=== PATIENT | male | born 1995 | race Caucasian/White ===

== ENCOUNTER 2020-11-25 16:12 | Outpatient (REF) | payer OTHER, SELFPAY ==
--- NOTE | ~2020-11-25 | XR_ITS ---
EXAMINATION: XR CHEST CLINICAL INFORMATION: Covid infection COMPARISON: None TECHNIQUE: 2 views of the chest were obtained. FINDINGS: No significant abnormality is noted involving the heart, lungs, mediastinum, bony thorax or soft tissues. XR/XR chest 2V IMPRESSION: Unremarkable examination.
== END 2020-11-25 16:13 | disposition home or self-care (01) ==
LOC: HO.HMGCX 16:12
PROVIDERS: PCP Physician Assistant; Visit Provider Physician Assistant
DX: U07.1 COVID-19 (principal)
CPT/HCPCS: 71046

== ENCOUNTER 2021-10-27 16:33 | Outpatient (REF) | payer OTHER, SELFPAY ==
[2021-10-27 17:55] LABS: Hemoglobin 15.6 g/dl (14.0-18.0); Mean Corpuscular HGB Conc 33.9 g/dl (31.0-36.0); Mean Corpuscular Hemoglobin 29.8 pg (27.0-33.0); Mean Corpuscular Volume 87.8 fL (80.0-98.0); Mean Platelet Volume 11.4 fL (9.4-12.4); Platelet Count 301 X10*3/uL (160-400); Red Blood Count 5.24 X10*6/uL (4.60-5.80); Red Cell Distribution Width 12.5 % (11.0-16.0); White Blood Count 10.6 X10*3/uL (4.8-10.8)
[2021-10-27 18:15] LABS: Alanine Aminotransferase 37 U/L (0-40); Albumin Level 4.6 g/dL (3.5-5.0); Alkaline Phosphatase 102 U/L (39-117); Anion Gap 12 (12-20); Aspartate Amino Transferase 23 U/L (5-37); Bilirubin Total 0.4 mg/dL (0.0-1.0); Blood Urea Nitrogen 13 mg/dL (9-16); Carbon Dioxide 28 mmol/L (22-29); Chloride 104 mmol/L (96-108); Cholesterol 278 mg/dL; Estimated Glomerular Filt Rate > 60; Glucose Fasting 84 mg/dL (60-99); HDL Cholesterol 39 mg/dL; LDL Cholesterol Calculated 202 mg/dl; Potassium 4.3 mmol/L (3.3-5.1); Sodium 140 mmol/L (135-145); Total Protein 7.9 g/dL (6.5-8.0); Triglycerides 189 mg/dL
[2021-10-27 18:38] LABS: TSH reflex Free T4 2.35 uIU/mL (0.32-4.0)
[2021-10-28 07:54] LABS: Estimated Average Glucose 100 mg/dL; Hemoglobin A1c % 5.1 %
== END 2021-10-27 16:34 | disposition home or self-care (01) ==
LOC: HO.LAB 16:33
PROVIDERS: Visit Provider Physician Assistant
DX: Z13.1 Encounter for screening for diabetes mellitus (principal); Z13.220 Encounter for screening for lipoid disorders; E66.09 Other obesity due to excess calories; Z68.35 Body mass index [BMI] 35.0-35.9, adult
CPT/HCPCS: 36415; 80053; 80061; 83036; 84443; 85027

== ENCOUNTER → 2021-11-18 09:00 | Outpatient (BNVA) | payer OTHER, SELFPAY | PROVIDERS: PCP Physician Assistant; Visit Provider Dietitian, Registered | DX: E66.9 Obesity, unspecified (principal); Z68.35 Body mass index [BMI] 35.0-35.9, adult; Z71.3 Dietary counseling and surveillance | CPT/HCPCS: 97802 ==

== ENCOUNTER → 2022-03-04 08:58 | Outpatient (BNVA) | payer OTHER, SELFPAY | PROVIDERS: PCP Physician Assistant; Visit Provider Dietitian, Registered | DX: E66.09 Other obesity due to excess calories (principal); Z68.33 Body mass index [BMI] 33.0-33.9, adult | CPT/HCPCS: 97803 ==

== ENCOUNTER 2023-06-17 08:39 | Outpatient (REF) | payer OTHER, SELFPAY ==
--- NOTE | ~2023-06-17 | FL_ITS ---
EXAMINATION: XR FLUOROSCOPY BARIUM SWALLOW WITH AIR CLINICAL INFORMATION: Episodic oropharyngeal phase dysphagia, chronic. COMPARISON: None TECHNIQUE: Fluoroscopic barium swallow was performed utilizing standard technique with thin and thick barium with effervescent granules. Numerous fluoroscopic spot images were obtained. FINDINGS: Imaging of the oral pharyngeal and hypopharyngeal phase of swallow demonstrates normal function, normal epiglottic movement and soft palate elevation. No nasopharyngeal reflux and no evidence of laryngeal penetration or aspiration. The hypopharyngeal structures have a normal appearance. No evidence of cricopharyngeal achalasia. The esophagus demonstrates normal caliber and contour. No strictures, masses, or mucosal abnormality. No evidence of esophageal web or congenital anomaly. Esophageal motility was normal with good primary peristalsis. No evidence of hiatus hernia was seen. There was episodic gastroesophageal reflux which was significant, to the level of the thoracic inlet and beyond. This was noted several times during the examination. The stomach has a normal contour and appearance. No masses or ulcerations identified. Normal gastric fold pattern. Contrast freely passed into the duodenal bulb and duodenal sweep without delay. Imaging of the bulb and sweep demonstrate normal mucosal patterns without focal abnormalities. The proximal small bowel has a normal fold pattern, and contrast has progressed into the proximal ileum by the end of the examination. FLUOROSCOPY TIME: 4.2 minutes 54 spot images obtained. DOSE AREA PRODUCT: 51.276 uGy-m2 (microgray-meter squared) FL/FL barium swallow with air IMPRESSION: 1. Episodic rather profound gastroesophageal reflux to the level of the thoracic inlet and beyond. No evidence of hiatus hernia. 2. Examination is otherwise normal.
== END 2023-06-17 08:40 | disposition home or self-care (01) ==
LOC: HO.XRAY 08:39
PROVIDERS: Visit Provider Physician Assistant
DX: R13.12 Dysphagia, oropharyngeal phase (principal)
CPT/HCPCS: 74221

== ENCOUNTER → 2023-06-17 08:40 | Outpatient (BNV) | payer OTHER, SELFPAY | PROVIDERS: Visit Provider Radiology Diagnostic Radiology | DX: R13.10 Dysphagia, unspecified (principal) | CPT/HCPCS: 74221 ==

== ENCOUNTER 2023-06-24 14:50 | Outpatient (AMB) | payer OTHER, SELFPAY ==
--- NOTE | 2023-06-24 15:02 | A.OFFPC_ITS ---
Vital Signs 06/24/23 15:04 Height 5 ft 9 in Weight 236 lb 2 oz BMI 34.9 BP 118/76 Blood Pressure Location Lt brachial Position Sitting Pulse 66 Pulse Source Pulse Oximeter Pulse Oximetry (%) 97 Oxygen Delivery Method Room Air Intake Visit Reasons: f/u weight and cholesterol Intake Note: Patient is here to follow up on weight and cholesterol. Management Accounts Manager Required: No Digital Traffic Coordinator: Not Required per policy Accompanied by: Self / Same As Patient Allergies oyster extract Allergy (Mild, Verified 06/24/23 15:20) Abdominal Pain Medication List - Last Reconciled 06/24/23 by Todd Leary PA-C No Known Home Meds Tobacco use date assessed: 06/24/23 Dental Screening Dental Screen Date: 06/24/23 Did you have a dental visit in the last 12 months?: Yes Did you have a dental problem in the last 6 months where you did not have access to dental care?: No Was dental information given to patient?: Patient has dentist HPI f/u weight and cholesterol HPI Details Patient is a 27 -year-old male here today for annual physical.? Concerns-->??recently underwent a barium swallow which did show profound gastroesophageal reflux. He is now following up with PCP about treatment and management. PLAN: Will start PPI therapy and we did discuss dietary modifications for GERD Obesity: We have noted a 10 lb weight loss since last office visit. Otherwise patient understands his BMI is 34 and needs to reduce his weight.? Has unfortunately gained weight since last annual physical. He reports he has a sedative lifestyle and will work on being more physically active. [facility] Surgical History No pertinent past surgical history Family History Father Hypertension Mother No problems noted. Maternal Uncle Lung cancer Maternal Grandfather Lung cancer Social History Housing: House Alcohol intake: current Alcohol intake frequency: a few times a month Alcohol type: beer Patient Tobacco Use Status: Never used Tobacco e-Cigarette/Vaping Use: Never Used Second Hand Smoke Exposure: No service: No Current occupational status: employed Current occupation: [employer] Cognitive needs: No Hearing needs: No Vision needs: Yes (glasses) Questionnaire Thrive Questionnaire Date Thrive assessed: 12/22/22 TAMIKA-7 AMB Questionnaire TAMIKA-7 Date TAMIKA - 7 assessed: 12/22/22 Source: Developed by Drs. Bruce Alfonso, Andria Michael, Krishna Rivera and colleagues, with an educational meño from [employer]. Review of Systems Const Denies headache(s) Eyes Denies loss of vision ENT Denies vertigo, Denies dizziness, Denies headache(s) and Denies sore throat Card Denies chest pain, Denies leg edema and Denies lightheadedness Resp Denies cough, Denies hemoptysis and Denies wheezing GI Denies abdominal pain, Denies melena, Denies constipation, Reports dyspepsia, Reports heartburn, Denies diarrhea and Denies vomiting Denies dysuria, Denies urinary frequency and Denies urinary urgency Musc Denies arthralgias, Denies joint swelling, Denies numbness and Denies tingling Neuro Denies Abnormal speech present, Denies behavioral changes, Denies vertigo, Denies dizziness, Denies headache(s), Denies loss of vision, Denies memory loss, Denies numbness and Denies tingling Psych Denies anxiety, Denies behavioral changes, Denies depression, Denies memory loss and Denies panic attacks Angelito/Lymph Denies easy bleeding and Denies easy bruising Aller/Immun Denies wheezing Physical exam (Primary Care) Vital Signs: Last Vital Signs Pulse 66 06/24/23 15:04 BP 118/76 06/24/23 15:04 Pulse Ox 97 06/24/23 15:04 Oxygen Delivery Method Room Air 06/24/23 15:04 BMI result Body Mass Index 34.9 Tobacco/Smoking Status: Tobacco use Status Tobacco use date assessed 06/24/23 06/24/23 15:11 Patient Tobacco Use Status Never used Tobacco 06/24/23 15:11 e-Cigarette/Vaping Use Never Used 06/24/23 15:11 Thrive Assessment: Date of Thrive Assessment Date Thrive assessed 12/22/22 06/24/23 15:11 Const General: healthy appearing, no acute distress, alert and awake Nutritional Appearance: well nourished Orientation/consciousness: oriented to person, oriented to place and oriented to time HENMT Ears: TM's normal bilaterally General nose exam: Normal nasal mucous membranes and turbinates present Eyes Conjunctivae: conjunctivae normal Sclerae: sclerae normal Pupils: Equal, round and reactive pupils present Neck Neck: Yes no lymphadenopathy and Yes no JVD Thyroid: Thyroid normal Carotids: no bruits Resp Effort & Inspection: normal respiratory effort and not tachypneic Auscultation: no crackles, no rales, no rhonchi and no wheezes Cardio Rate: regular rate Rhythm: regular rhythm Heart sounds: no murmurs and normal S1 and S2 GI Palpation (GI): Soft to palpation, nontender, no hepatomegaly and no splenomegaly Auscultation: normal bowel sounds Skin General skin exam: no rashes or lesions noted and dry skin Neuro General: oriented to person, oriented to place and oriented to time Cranial nerves: Yes Equal, round and reactive pupils present Speech: No Abnormal speech present Gait exam (Neuro): Normal gait present Motor exam (neuro): no tremor noted Extrem Right upper extremity: full ROM Left upper extremity: full ROM Right lower extremity: full ROM; no edema Left lower extremity: full ROM; no edema Psych Mental Status: mental status grossly normal Speech and movement: Normal speech and movement present Affect: normal affect Attitude: cooperative Thought process: Normal thought process present Assessment and Plan Assessment & Plan (1) GERD (gastroesophageal reflux disease): Comment: May 2023Episodic rather profound gastroesophageal reflux to the level of the thoracic inlet and beyond. No evidence of hiatus hernia. 2. Examination is otherwise normal. Code(s): K21.9 - Gastro-esophageal reflux disease without esophagitis Qualifiers: Esophagitis presence: without esophagitis Qualified Code(s): K21.9 - Gastro-esophageal reflux disease without esophagitis Plan: As per HPI patient is barium swallow did show profound gastro oesophageal reflux. Will start PPI therapy and implement and dietary changes to reduce GERD symptoms. If conservative treatment fails will consider GI evaluation for endoscopy. Coding Level of Care Code Est Pt Level 3 (93322) Diagnoses Gastroesophageal reflux disease without esophagitis K21.9 Esophagitis presence: without esophagitis
[2023-06-24 15:04] VITALS: BP 118/76; PULSE 66; O2SAT 97; BMI 34.9
== END 2023-06-24 15:33 | disposition home or self-care (01) ==
PROVIDERS: Visit Provider Physician Assistant
DX: K21.9 Gastro-esophageal reflux disease without esophagitis (principal)
CPT/HCPCS: 99213

== ENCOUNTER 2023-09-20 14:53 | Outpatient (REF) | payer OTHER, SELFPAY ==
[2023-09-22 15:30] LABS: H Pylori Breath Test Negative (Negative)
== END 2023-09-20 14:54 | disposition home or self-care (01) ==
LOC: CF 14:53
PROVIDERS: Visit Provider Nurse Practitioner Family
DX: K21.9 Gastro-esophageal reflux disease without esophagitis (principal); R13.12 Dysphagia, oropharyngeal phase; R10.13 Epigastric pain
CPT/HCPCS: 83013

== ENCOUNTER 2023-09-20 14:53 | Outpatient (AMB) | payer OTHER, SELFPAY ==
--- NOTE | 2023-09-20 15:00 | A.OFFVIS_ITS ---
Intake Vital Signs 09/20/23 15:01 Height 5 ft 9 in Weight 237 lb 10.533 oz BMI 35.1 BP 129/76 Blood Pressure Location Lt brachial Position Sitting Pulse 64 Intake Visit Reasons: gerd Intake Note: Geoff presents to in office visit today as a new patient for GERD. CC: Patient c/o severe acid reflux. He states last Wednesday he had an episode of waking up choking d/t acid reflux and burning from esophagus. He reports onset about a year and a half ago. He also states that sometimes when eating he feels like his throat is closing , and since Wednesday he has been sleeping on recliner. Junior Legal Secretary Required: No Allergies oyster extract Allergy (Mild, Verified 09/20/23 15:05) Abdominal Pain HPI gerd HPI Details 28-year-old male with past medical histo ry of hyperlipidemia, dysphagia, obesity, GERD is here today for initial consultation. Patient was sent to us by his PCP. Patient had barium swallow done and was noted to have severe acid reflux. Patient reports that he has not been taking any medications. Patient reports that last week and he ate subway with onions and tomatoes late at night, went to bed hour later and woke up at 3 in the morning feeling acid coming up to his throat. Patient has not been avoiding any of the dietary triggers. Denies any nausea or vomiting. Reports dyspepsia with dysphagia without odynophagia. [facility] Surgical History No pertinent past surgical history Family History Father Hypertension Mother No problems noted. Maternal Uncle Lung cancer Maternal Grandfather Lung cancer Social History Housing: House Alcohol intake: current Alcohol intake frequency: a few times a month Alcohol type: beer Patient Tobacco Use Status: Never used Tobacco e-Cigarette/Vaping Use: Never Used Second Hand Smoke Exposure: No service: No Current occupational status: employed Current occupation: [employer] Cognitive needs: No Hearing needs: No Vision needs: Yes (glasses) Review of Systems Const Denies weight gain and Denies weight loss ENT Reports no additional complaints, Denies dysphagia and Denies odynophagia Card Reports no additional complaints Resp Reports no additional complaints GI Denies abdominal pain, Denies belching, Denies melena, Denies bloating, Denies change in bowel habits, Denies dysphagia, Denies excessive flatus, Denies dyspepsia, Reports heartburn, Denies diarrhea, Denies loose stools, Denies nausea, Denies odynophagia and Denies vomiting Reports no additional complaints Musc Reports no additional complaints Neuro Reports no additional complaints Psych Reports no additional complaints Endo Reports no additional complaints Physical Exam Vital Signs: Last Vital Signs Pulse 64 09/20/23 15:01 BP 129/76 09/20/23 15:01 BMI result Body Mass Index 35.1 Const General: healthy appearing, no acute distress and well developed Nutritional Appearance: obese Orientation/consciousness: patient oriented x3 HEENT Head: Yes normal to inspection, Yes normocephalic and Yes atraumatic Face and sinus: Yes normal facial exam Mouth: Normal oral and palatal mucosa present Throat: Yes posterior oropharynx normal, Yes tonsils normal and Yes uvula midline Eyes General: appearance normal, both eyes and all related structures Neck Neck: Yes normal visual inspection, Yes full ROM and Yes trachea midline Thyroid: Thyroid normal Resp Effort & Inspection: normal respiratory effort, able to speak in complete sentences, no tracheal deviation and symmetric chest movement Auscultation: clear to auscultation bilaterally Cardio Rate: regular rate GI Inspection: Yes normal to inspection, No distended and Yes obesity Palpation (GI): Soft to palpation, not firm, nontender and No hepatosplenomegaly present Auscultation: normal bowel sounds General: Yes no CVA tenderness Back/Spine/Pelvis Back: no CVA tenderness Skin General skin exam: elasticity normal, turgor normal and dry skin Neuro General: patient oriented x3 Psych Appearance: grossly normal Mental Status: mental status grossly normal Results Reviewed Results Reviewed: BARIUM SWALLOW: IMPRESSION: 1. Episodic rather profound gastroesophageal reflux to the level of the thoracic inlet and beyond. No evidence of hiatus hernia. 2. Examination is otherwise normal. Assessment & Plan Assessment & Plan (1) GERD (gastroesophageal reflux disease): Code(s): K21.9 - Gastro-esophageal reflux disease without esophagitis Qualifiers: Esophagitis presence: without esophagitis Qualified Code(s): K21.9 - Gastro-esophageal reflux disease without esophagitis (2) Dysphagia: Code(s): R13.10 - Dysphagia, unspecified Qualifiers: Dysphagia type: oropharyngeal phase Qualified Code(s): R13.12 - Dysphagia, oropharyngeal phase (3) Dyspepsia: Code(s): R10.13 - Epigastric pain Plan Will check for H pylori and treat empirically if positive. Discussed with patient the importance of avoiding dietary triggers and late night snacking. Staying upright for minimum 3 hours after meals discussed with patient. Will start patient on pantoprazole. I will see patient in 4 months, sooner on as needed basis. Patient will call our office if his symptoms will get worse or no improvement with pantoprazole. Patient is agreeable to current plan and verbalizes understanding of instructions. He was given the opportunity to ask questions and all questions answered. Thank you for allowing me to participate in his care Orders: Orders H Pylori Breath Test Today Medications: New pantoprazole take one tablet half an hour before breakfast 40 mg PO DAILY 30 tabs 2RF K21.9 - Gastro-esophageal reflux disease without esophagitis Coding Level of Care Code New Pt Level 4 (26779) Diagnoses Gastroesophageal reflux disease without esophagitis K21.9 Esophagitis presence: without esophagitis Oropharyngeal dysphagia R13.12 Dysphagia type: oropharyngeal phase Dyspepsia R10.13 Time Spent (min) 45 Comment 30 minutes spent with patient and additional 15 minutes spent reviewing his records
[2023-09-20 15:01] VITALS: BP 129/76; PULSE 64; BMI 35.1
== END 2023-09-20 15:34 | disposition home or self-care (01) ==
PROVIDERS: Visit Provider Nurse Practitioner Family
DX: K21.9 Gastro-esophageal reflux disease without esophagitis (principal); R13.12 Dysphagia, oropharyngeal phase; R10.13 Epigastric pain
CPT/HCPCS: 99204

== ENCOUNTER 2023-11-23 14:34 | Outpatient (AMB) | payer OTHER, SELFPAY ==
[2023-11-23 14:41] VITALS: BP 108/84; PULSE 64; O2SAT 98; BMI 35.4
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
== END 2023-11-23 15:23 | disposition home or self-care (01) ==
PROVIDERS: Visit Provider Physician Assistant
DX: S62.515D Nondisplaced fracture of proximal phalanx of left thumb, subsequent encounter for fracture with routine healing (principal); V89.2XXA Person injured in unspecified motor-vehicle accident, traffic, initial encounter
CPT/HCPCS: 99213

== ENCOUNTER 2023-12-28 15:58 | Outpatient (AMB) | payer OTHER, SELFPAY ==
[2023-12-28 16:10] VITALS: BP 132/92; PULSE 68; O2SAT 98; BMI 33.2
--- NOTE | 2023-12-28 16:10 | A.OFFPC_ITS ---
Vital Signs 12/28/23 16:10 12/28/23 16:48 Height 5 ft 9 in Weight 225 lb 2 oz BMI 33.2 BP 132/92 H 130/90 H Blood Pressure Location Lt brachial Position Sitting Pulse 68 Pulse Source Pulse Oximeter Pulse Oximetry (%) 98 Oxygen Delivery Method Room Air Intake Visit Reasons: Annual Exam Intake Note: Patient is here today for a physical. 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 Accompanied by: Self / Same As Patient Allergies oyster extract Allergy (Mild, Verified 12/28/23 16:45) Abdominal Pain Medication List - Last Reconciled 12/28/23 by Todd Leary PA-C pantoprazole 40 mg PO DAILY Tobacco use date assessed: 11/23/23 Dental Screening Dental Screen Date: 12/28/23 Did you have a dental visit in the last 12 months?: Yes Did you have a dental problem in the last 6 months where you did not have access to dental care?: No Was dental information given to patient?: Patient has dentist HPI Annual Exam HPI Details Patient is a 28-year-old male here today for an annual physical patient has a past medical history significant for obesity, hyperlipidemia Obesity: We have noted a 10 lb weight loss since last office visit. Has been trying a new cleanse . Otherwise patient understands his BMI is 34 and needs to reduce his weight.? Has unfortunately gained weight since last annual physical. He reports he has a sedative lifestyle and will work on being more physically active. .. Hyperlipidemia: Patient's most recent fasting lipid panel done few years ago showing very elevated total cholesterol and LDL. We did discuss the probable need to start statin therapy though patient will like to hold off and continue working on lifestyle modifications. Vaccines: : Up-to-date with COVID vaccine, tetanus vaccine, declines flu vaccine. [facility] Surgical History No pertinent past surgical history Family History Father Hypertension Mother No problems noted. Maternal Uncle Lung cancer Maternal Grandfather Lung cancer Social History (Updated 12/28/23 @ 16:47 by Todd Leary PA-C) Housing: House Alcohol intake: current Alcohol intake frequency: a few times a month Alcohol type: beer Patient Tobacco Use Status: Never used Tobacco e-Cigarette/Vaping Use: Never Used Second Hand Smoke Exposure: No service: No Current occupational status: employed Current occupation: [employer] - Cognitive needs: No Hearing needs: No Vision needs: Yes (glasses) Questionnaire Thrive Questionnaire Date Thrive assessed: 11/23/23 TAMIKA-7 AMB Questionnaire TAMIKA-7 Date TAMIKA - 7 assessed: 11/23/23 Source: Developed by Drs. Bruce Alfonso, Andria Michael, Krishna Rivera and colleagues, with an educational meño from [employer]. Review of Systems Const Denies body aches, Denies chills, Denies excessive sweating, Denies fatigue, De nies fever(s) and Denies headache(s) Eyes Denies blurry vision ENT Denies dysphagia, Denies vertigo, Denies dizziness, Denies headache(s), Denies hearing loss and Denies tinnitus Card Denies chest pain, Denies chest pain with activity, Denies syncope, Denies irregular heart rhythm and Denies dyspnea Resp Denies chest congestion, Denies cough, Denies hemoptysis, Denies dyspnea and Denies wheezing GI Denies abdominal pain, Denies melena, Denies hematochezia, Denies coffee ground emesis, Denies dysphagia, Denies diarrhea, Denies nausea and Denies vomiting Denies difficulty urinating, Denies dysuria, Denies urinary frequency, Denies urinary hesitancy and Denies urinary urgency Musc Denies arthralgias, Denies limited range of motion, Denies muscle cramps and Denies muscle weakness Skin/Breast Denies rash and Denies skin ulcer Neuro Denies Abnormal speech present, Denies confusion, Denies vertigo, Denies dizziness, Denies syncope, Denies headache(s), Denies memory loss and Denies seizure-like activity Psych Denies anxiety, Denies confusion, Denies depression, Denies memory loss, Denies panic attacks and Denies paranoia Endo Denies excessive sweating, Denies fatigue, Denies flushing, Denies polydipsia and Denies polyuria Aller/Immun Denies wheezing Physical exam (Primary Care) Vital Signs: Last Vital Signs Pulse 68 12/28/23 16:10 BP 130/90 H 12/28/23 16:48 Pulse Ox 98 12/28/23 16:10 Oxygen Delivery Method Room Air 12/28/23 16:10 BMI result Body Mass Index 33.2 BMI Assessment/Plan discussion: High Tobacco/Smoking Status: Tobacco use Status Tobacco use date assessed 11/23/23 12/28/23 16:11 Patient Tobacco Use Status Never used Tobacco 12/28/23 16:47 e-Cigarette/Vaping Use Never Used 12/28/23 16:47 Thrive Assessment: Date of Thrive Assessment Date Thrive assessed 11/23/23 12/28/23 16:11 Const Other: OBESE General: cooperative, comfortable, no acute distress, alert and awake; No confusion Orientation/consciousness: oriented to person, oriented to place, patient oriented x3 and No confusion HENMT Head: Yes normocephalic Ears: external ears normal and TM's normal bilaterally Face and sinus: No sinus tenderness Mouth: Normal oral and palatal mucosa present and tongue normal Teeth and gingiva: dentition normal and gingiva normal Throat: Yes posterior oropharynx normal, Yes tonsils normal and Yes uvula midline Eyes Conjunctivae: conjunctivae normal Sclerae: sclerae normal Pupils: Equal, round and reactive pupils present EOM: EOMs intact bilaterally Direct Ophthalmoscopy: No no photophobia Neck Neck: Yes no lymphadenopathy, No tender and Yes no JVD Thyroid: Thyroid normal Carotids: no bruits Chest Chest palpation & inspection: no tenderness Resp Effort & Inspection: normal respiratory effort, no audible wheezes, not labored and no stridor Auscultation: no crackles, no rales, no rhonchi and no wheezes Cardio Jugular venous distension: no JVD Rate: regular rate, not bradycardic and not tachycardic Rhythm: regular rhythm Bruits: no carotid bruits Peripheral pulses: Peripheral pulses 2+ throughout GI Inspection: Yes normal to inspection, No abdominal wall ecchymosis and No visible herniation Palpation (GI): Soft to palpation, nontender, no guarding, not rigid and No hepatosplenomegaly present Auscultation: normoactive bowel sounds General: Yes no CVA tenderness Back/Spine/Pelvis Back: no CVA tenderness and No back tenderness Cervical Spine: cervical ROM normal Thoracic/Lumbar Spine: thoracic and lumbar spine normal to inspection, straight leg raise negative bilaterally, No thoraco-lumbar ROM limited and No lumbar spinal tenderness Skin Lesions: no lesions Rashes: no rashes Wounds: no wounds Neuro General: oriented to person, oriented to place, patient oriented x3, CN's II-XI intact bilaterally and No confusion Cranial nerves: Yes Equal, round and reactive pupils present and Yes Normal accommodation reflex present Cognition (Neuro): normal cognition Speech: No Abnormal speech present Gait exam (Neuro): Normal gait present Motor exam (neuro): 5/5 motor strength present throughout Extrem Right upper extremity: full ROM; no cyanosis Left upper extremity: full ROM; no cyanosis Right lower extremity: no edema Left lower extremity: no edema Psych Appearance: grossly normal Mental Status: mental status grossly normal Affect: normal affect Attitude: cooperative Thought process: Normal thought process present Assessment and Plan Assessment & Plan (1) Annual physical exam: Code(s): Z00.00 - Encounter for general adult medical examination without abnormal findings (2) HLD (hyperlipidemia): Code(s): E78.5 - Hyperlipidemia, unspecified Qualifiers: Hyperlipidemia type: mixed hyperlipidemia Qualified Code(s): E78.2 - Mixed hyperlipidemia Plan: Patient's most recent lipid panel showing very elevated total cholesterol and LDL. Has been working on lifestyle modifications to reduce his cholesterol. We have discussed the possibility of starting statin medication though patient would like to continue working on lifestyle modifications. Goal LDL to be below 190 (3) Obese: Code(s): E66.9 - Obesity, unspecified Qualifiers: Body mass index: BMI 36.0-36.9 Obesity classification: adult class 2 (BMI 35 - 39.9) Obesity type: due to excess calories Serious obesity comorbidity presence: without serious comorbidity Qualified Code(s): E66.09 - Other obesity due to excess calories; Z68.36 - Body mass index [BMI] 36.0-36.9, adult Plan: Patient does understand his BMI is elevated at 36 and will work on being more physically active and adapting to better eating habits to reduce his weight (4) Elevated blood pressure reading: Code(s): R03.0 - Elevated blood-pressure reading, without diagnosis of hypertension Plan: Noted slightly elevated blood pressure readings today. He attributes this to his recent cleanse and fasting. Advised to monitor blood pressure at home with goal blood pressure to be below 140/90. Orders: Orders Comprehensive [place]. Panel Fast 12/28/23 E78.2 - Mixed hyperlipidemia Lipid Panel 12/28/23 E78.2 - Mixed hyperlipidemia Coding Level of Care Code Est Pt Prev Care 18-39y([id number]) Diagnoses Annual physical exam Z00.00 Mixed hyperlipidemia E78.2 Hyperlipidemia type: mixed hyperlipidemia Class 2 obesity due to excess calories without serious comorbidity with body mass index (BMI) of 36.0 to 36.9 in adult E66.09; Z68.36 Body mass index: BMI 36.0-36.9 Obesity classification: adult class 2 (BMI 35 - 39.9) Obesity type: due to excess calories Serious obesity comorbidity presence: without serious comorbidity Elevated blood pressure reading R03.0
[2023-12-28 16:48] VITALS: BP 130/90
== END 2023-12-28 16:59 | disposition home or self-care (01) ==
PROVIDERS: Visit Provider Physician Assistant
DX: Z00.00 Encounter for general adult medical examination without abnormal findings (principal); E78.2 Mixed hyperlipidemia; E66.09 Other obesity due to excess calories; Z68.36 Body mass index [BMI] 36.0-36.9, adult; R03.0 Elevated blood-pressure reading, without diagnosis of hypertension
CPT/HCPCS: 99395

== ENCOUNTER 2024-01-17 15:29 | Outpatient (AMB) | payer OTHER, SELFPAY ==
--- NOTE | 2024-01-17 15:31 | MHC.OFFVIS ---
Intake Vital Signs 01/17/24 15:33 Height 5 ft 9 in Weight 228 lb 13.437 oz BMI 33.8 BP 119/76 Blood Pressure Location Lt brachial Position Sitting Pulse 78 Pulse Source Pulse Oximeter Pulse Oximetry (%) 99 Oxygen Delivery Method Room Air Intake Visit Reasons: 4 month follow up [employer] Program Coordinator Required: No Information Interpreted: non-clinical & clinical Accompanied by: Self / Same As Patient Allergies oyster extract Allergy (Mild, Verified 01/17/24 15:32) Abdominal Pain HPI 4 month follow up HPI Details LAST VISIT GERD (gastroesophageal reflux disease) Dysphagia Dyspepsia Plan Will check for H pylori and treat empirically if positive. Discussed with patient the importance of avoiding dietary triggers and late night snacking. Staying upright for minimum 3 hours after meals discussed with patient. Will start patient on pantoprazole. I will see patient in 4 months, sooner on as needed basis. Patient will call our office if his symptoms will get worse or no improvement with pantoprazole. Patient is agreeable to current plan and verbalizes understanding of instructions. He was given the opportunity to ask questions and all questions answered. ? Thank you for allowing me to participate in his care Orders Orders H Pylori Breath Test Today Medications New pantoprazole take one tablet half an hour before breakfast 40 mg PO DAILY 30 tabs 2RF K21.9 TODAY'S VISIT Patient is here today for follow-up. Patient had negative H pylori test. Was taking pantoprazole for couple months and then stopped. Patient states that he change his diet as he wants to lose weight. Patient states that he did a cleanse where he lost 15 lb. After he changed his diet his symptoms of postprandial abdominal bloating and acid reflux stopped. Patient reports that he has been feeling well and denies any GI concerning symptoms. [facility] Surgical History No pertinent past surgical history Family History Father Hypertension Mother No problems noted. Maternal Uncle Lung cancer Maternal Grandfather Lung cancer Social History Housing: House Alcohol intake: current Alcohol intake frequency: a few times a month Alcohol type: beer Patient Tobacco Use Status: Never used Tobacco e-Cigarette/Vaping Use: Never Used Second Hand Smoke Exposure: No service: No Current occupational status: employed Current occupation: [employer] - Cognitive needs: No Hearing needs: No Vision needs: Yes (glasses) Review of Systems Const Denies weight gain and Denies weight loss ENT Reports no additional complaints, Denies dysphagia and Denies odynophagia Card Reports no additional complaints Resp Reports no additional complaints GI Denies abdominal pain, Denies belching, Denies melena, Denies bloating, Denies change in bowel habits, Denies dysphagia, Denies excessive flatus, Denies dyspepsia, Denies heartburn, Denies diarrhea, Denies loose stools, Denies nausea, Denies odynophagia and Denies vomiting Reports no additional complaints Musc Reports no additional complaints Neuro Reports no additional complaints Psych Reports no additional complaints Endo Reports no additional complaints Physical Exam Const General: healthy appearing and no acute distress Nutritional Appearance: obese Orientation/consciousness: patient oriented x3 Resp Effort & Inspection: normal respiratory effort, able to speak in complete sentences, no tracheal deviation and symmetric chest movement Auscultation: clear to auscultation bilaterally Cardio Rate: regular rate GI Inspection: Yes normal to inspection, No distended and Yes obesity Palpation (GI): Soft to palpation, not firm, nontender and No hepatosplenomegaly present Auscultation: normal bowel sounds General: Yes no CVA tenderness Back/Spine/Pelvis Back: no CVA tenderness Skin General skin exam: elasticity normal, turgor normal and dry skin Neuro General: patient oriented x3 Psych Appearance: grossly normal Mental Status: mental status grossly normal Assessment & Plan Assessment & Plan (1) GERD (gastroesophageal reflux disease): Code(s): K21.9 - Gastro-esophageal reflux disease without esophagitis Qualifiers: Esophagitis presence: without esophagitis Qualified Code(s): K21.9 - Gastro-esophageal reflux disease without esophagitis (2) Obese: Code(s): E66.9 - Obesity, unspecified Qualifiers: Obesity type: due to excess calories Obesity classification: adult class 2 (BMI 35 - 39.9) Serious obesity comorbidity presence: without serious comorbidity Body mass index: BMI 36.0-36.9 Qualified Code(s): E66.09 - Other obesity due to excess calories; Z68.36 - Body mass index [BMI] 36.0-36.9, adult Plan Continue avoiding dietary triggers. Continue weight loss and exercise. Patient will follow-up in our office on as needed basis. He is agreeable to plan of care and verbalizes understanding of instructions. He was given the opportunity to ask questions and all questions answered. Thank you for allowing me to participate in his care Coding Level of Care Code Est Pt Level 3 (58950) Diagnoses Gastroesophageal reflux disease without esophagitis K21.9 Esophagitis presence: without esophagitis Class 2 obesity due to excess calories without serious comorbidity with body mass index (BMI) of 36.0 to 36.9 in adult E66.09; Z68.36 Obesity type: due to excess calories Obesity classification: adult class 2 (BMI 35 - 39.9) Serious obesity comorbidity presence: without serious comorbidity Body mass index: BMI 36.0-36.9 Time Spent (min) 25 Comment 15 minutes spent with patient and additional 10 minutes spent reviewing his records
[2024-01-17 15:33] VITALS: BP 119/76; PULSE 78; O2SAT 99; BMI 33.8
== END 2024-01-17 16:12 | disposition home or self-care (01) ==
PROVIDERS: PCP Physician Assistant; Visit Provider Nurse Practitioner Family
DX: K21.9 Gastro-esophageal reflux disease without esophagitis (principal); E66.09 Other obesity due to excess calories; Z68.36 Body mass index [BMI] 36.0-36.9, adult
CPT/HCPCS: 99213

== ENCOUNTER → 2024-01-17 15:29 | Outpatient (BNVA) | payer OTHER, SELFPAY | PROVIDERS: PCP Physician Assistant; Visit Provider Nurse Practitioner Family ==

== ENCOUNTER 2024-06-27 15:31 | Outpatient (AMB) | payer OTHER, SELFPAY ==
--- NOTE | 2024-06-27 15:32 | MHC.PC.OV ---
Vital Signs 06/27/24 15:33 Height 5 ft 9 in Weight 228 lb 8 oz BMI 33.7 BP 122/70 Blood Pressure Location Lt brachial Position Sitting Pulse 86 Pulse Source Pulse Oximeter Pulse Oximetry (%) 96 Oxygen Delivery Method Room Air Intake Visit Reasons: f/u HLD Breakdown Worker Required: No Accompanied by: Self / Same As Patient Allergies oyster extract Allergy (Mild, Verified 06/27/24 15:44) Abdominal Pain Medication List - Last Reconciled 06/27/24 by Todd Leary PA-C No Known Home Meds Tobacco use date assessed: 11/23/23 Dental Screening Dental Screen Date: 12/28/23 HPI f/u HLD HPI Details Patient is a 29-year-old male here today a follow-up visit. Patient has a past medical history significant for obesity, hyperlipidemia .. Hyperlipidemia: Patient's most recent fasting lipid panel done few years ago showing very elevated total cholesterol and LDL. We did discuss the probable need to start statin therapy though patient will like to hold off and continue working on lifestyle modifications. Unfortunately has not made any changes to his diet and is not really physically active. He reports his lifestyle is fairly sedative. [facility] Surgical History No pertinent past surgical history Family History Father Hypertension Mother No problems noted. Maternal Uncle Lung cancer Maternal Grandfather Lung cancer Social History Housing: House Alcohol intake: current Alcohol intake frequency: a few times a month Alcohol type: beer Patient Tobacco Use Status: Never used Tobacco e-Cigarette/Vaping Use: Never Used Second Hand Smoke Exposure: No service: No Current occupational status: employed Current occupation: [employer] - Cognitive needs: No Hearing needs: No Vision needs: Yes (glasses) Questionnaire Thrive Questionnaire Date Thrive assessed: 11/23/23 TAMIKA-7 AMB Questionnaire TAMIKA-7 Date TAMIKA - 7 assessed: 11/23/23 Source: Developed by Drs. Bruce Alfonso, Andria Michael, Krishna Rivera and colleagues, with an educational meño from [employer]. Review of Systems Const Denies headache(s) Eyes Denies loss of vision ENT Denies vertigo, Denies dizziness, Denies headache(s) and Denies sore throat Card Denies chest pain, Denies leg edema and Denies lightheadedness Resp Denies cough, Denies hemoptysis and Denies wheezing GI Denies abdominal pain, Denies melena, Denies constipation, Denies diarrhea and Denies vomiting Denies dysuria, Denies urinary frequency and Denies urinary urgency Musc Denies arthralgias, Denies joint swelling, Denies numbness and Denies tingling Neuro Denies Abnormal speech present, Denies behavioral changes, Denies vertigo, Denies dizziness, Denies headache(s), Denies loss of vision, Denies memory loss, Denies numbness and Denies tingling Psych Denies anxiety, Denies behavioral changes, Denies depression, Denies memory loss and Denies panic attacks Angelito/Lymph Denies easy bleeding and Denies easy bruising Aller/Immun Denies wheezing Physical exam (Primary Care) Vital Signs: Last Vital Signs Pulse 86 06/27/24 15:33 BP 122/70 06/27/24 15:33 Pulse Ox 96 06/27/24 15:33 Oxygen Delivery Method Room Air 06/27/24 15:33 BMI result Body Mass Index 33.7 BMI Assessment/Plan discussion: High BMI High, discussed plan: lifestyle, weight reduction, dietary and physical activity Tobacco/Smoking Status: Tobacco use Status Tobacco use date assessed 11/23/23 06/27/24 15:34 Patient Tobacco Use Status Never used Tobacco 06/27/24 15:34 e-Cigarette/Vaping Use Never Used 06/27/24 15:34 Thrive Assessment: Date of Thrive Assessment Date Thrive assessed 11/23/23 06/27/24 15:34 Const General: healthy appearing, no acute distress, alert and awake Nutritional Appearance: well nourished Orientation/consciousness: oriented to person, oriented to place and oriented to time HENMT Ears: TM's normal bilaterally General nose exam: Normal nasal mucous membranes and turbinates present Eyes Conjunctivae: conjunctivae normal Sclerae: sclerae normal Pupils: Equal, round and reactive pupils present Neck Neck: Yes no lymphadenopathy and Yes no JVD Thyroid: Thyroid normal Carotids: no bruits Resp Effort & Inspection: normal respiratory effort and not tachypneic Auscultation: no crackles, no rales, no rhonchi and no wheezes Cardio Rate: regular rate Rhythm: regular rhythm Heart sounds: no murmurs and normal S1 and S2 GI Palpation (GI): Soft to palpation, nontender, no hepatomegaly and no splenomegaly Auscultation: normal bowel sounds Skin General skin exam: no rashes or lesions noted and dry skin Neuro General: oriented to person, oriented to place and oriented to time Cranial nerves: Yes Equal, round and reactive pupils present Speech: No Abnormal speech present Gait exam (Neuro): Normal gait present Motor exam (neuro): no tremor noted Extrem Right upper extremity: full ROM Left upper extremity: full ROM Right lower extremity: full ROM; no edema Left lower extremity: full ROM; no edema Psych Mental Status: mental status grossly normal Speech and movement: Normal speech and movement present Affect: normal affect Attitude: cooperative Thought process: Normal thought process present Assessment and Plan Assessment & Plan (1) HLD (hyperlipidemia): Code(s): E78.5 - Hyperlipidemia, unspecified Qualifiers: Hyperlipidemia type: mixed hyperlipidemia Qualified Code(s): E78.2 - Mixed hyperlipidemia Plan: Patient's most recent lipid panel showing very elevated total cholesterol and LDL. Has been working on lifestyle modifications to reduce his cholesterol. We have discussed the possibility of starting statin medication though patient would like to continue working on lifestyle modifications. Goal LDL to be below 190 (2) Obese: Code(s): E66.9 - Obesity, unspecified Qualifiers: Obesity type: due to excess calories Obesity classification: adult class 2 (BMI 35 - 39.9) Serious obesity comorbidity presence: without serious comorbidity Body mass index: BMI 36.0-36.9 Qualified Code(s): E66.09 - Other obesity due to excess calories; Z68.36 - Body mass index [BMI] 36.0-36.9, adult Plan: Patient does understand his BMI is elevated at 36 and will work on being more physically active and adapting to better eating habits to reduce his weight Patient Instructions: Goal: LDL to be below 190, total cholesterol to be below 200 Barriers: Adherence to physical activity and healthy eating habits Coding Level of Care Code Est Pt Level 3 (75550) Diagnoses Mixed hyperlipidemia E78.2 Hyperlipidemia type: mixed hyperlipidemia Class 2 obesity due to excess calories without serious comorbidity with body mass index (BMI) of 36.0 to 36.9 in adult E66.09; Z68.36 Obesity type: due to excess calories Obesity classification: adult class 2 (BMI 35 - 39.9) Serious obesity comorbidity presence: without serious comorbidity Body mass index: BMI 36.0-36.9
[2024-06-27 15:33] VITALS: BP 122/70; PULSE 86; O2SAT 96; BMI 33.7
== END 2024-06-27 16:03 | disposition home or self-care (01) ==
PROVIDERS: PCP Physician Assistant; Visit Provider Physician Assistant
DX: E78.2 Mixed hyperlipidemia (principal); E66.09 Other obesity due to excess calories; Z68.36 Body mass index [BMI] 36.0-36.9, adult
CPT/HCPCS: 99213

== ENCOUNTER 2024-12-28 15:56 | Outpatient (AMB) | payer OTHER, SELFPAY ==
--- NOTE | 2024-12-28 15:58 | MHC.PC.OV ---
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: No Accompanied by: Self / Same As Patient Allergies oyster extract Allergy (Mild, Verified 12/28/24 16:04) Abdominal Pain Medication List - Last Reconciled 12/28/24 by Todd Leary PA-C No Known Home Meds Tobacco use date assessed: 12/28/24 Dental Screening Dental Screen Date: 12/28/24 Did you have a dental visit in the last 12 months?: No Did you have a dental problem in the last 6 months where you did not have access to dental care?: No Was dental information given to patient?: Patient has dentist HPI Annual Exam HPI Details Patient is a 29-year-old male here today a routine annual physical Patient has a past medical history significant for obesity, hyperlipidemia .. Hyperlipidemia: Patient's most recent fasting lipid panel done few years ago showing very elevated total cholesterol and LDL. We did discuss the probable need to start statin therapy though patient will like to hold off and continue working on lifestyle modifications. Unfortunately has not made any changes to his diet and is not really physically active. He reports his lifestyle is fairly sedative. .. Class 2 obesity: Patient does understand his BMI is over 35 and will work on being more physically active and adapting to better eating habits to reduce his weight Vaccines: : Up-to-date with COVID vaccine, tetanus vaccine, declines flu vaccine. [facility] Surgical History No pertinent past surgical history Family History Father Hypertension Mother No problems noted. Maternal Uncle Lung cancer Maternal Grandfather Lung cancer Social History (Updated 12/28/24 @ 16:05 by Todd Leary PA-C) Housing: House Alcohol intake: current Alcohol intake frequency: a few times a month Alcohol type: beer Patient Tobacco Use Status: Never used Tobacco e-Cigarette/Vaping Use: Never Used Second Hand Smoke Exposure: No service: No Current occupational status: employed Current occupation: [email or web address] - Cognitive needs: No Hearing needs: No Vision needs: Yes (glasses) Questionnaire PHQ-9 Over the last 2 weeks, how often have you been bothered by any of the following problems? 1. Little interest or pleasure in doing things: not at all 2. Feeling down, depressed, or hopeless: not at all 3. Trouble falling or staying asleep, or sleeping too much: not at all 4. Feeling tired or having little energy: several days 5. Poor appetite or overeating: several days 6. Feeling bad about yourself - or that you are a failure or have let yourself or your family down: not at all 7. Trouble concentrating on things, such as reading the newspaper or watching television: not at all 8. Moving or speaking so slowly that other people could have noticed. Or the opposite - being so fidgety or restless that you have been moving around a lot more than usual: not at all 9. Thoughts that you would be better off or of hurting yourself in some way: not at all Total score: 2 Source: Developed by Drs. Bruce Alfonso, Andria Michael, Krishna Rivera and colleagues, with an educational meño from [employer]. Thrive Questionnaire Date Thrive assessed: 12/28/24 I am a: Patient What is your living situation today?: I have a steady place to live Within the past 12 months, did the food you bought not last and you didn't have the money to get more?: Sometimes True Within the past 12 months, did you worry whether your food would run out before you got money to buy more?: Never true Do you have trouble paying for medicines?: No Do you have trouble getting transportation to medical appointments?: No Do you have trouble paying your heating and electricity bill?: No Do you have trouble taking care of your child, family member or friend?: No Do you have trouble with day-to-day activities such as bathing, preparing meals, shopping, managing finances, etc.?: No Are you currently unemployed and looking for a job?: No Are you interested in more education?: No Please select the resources that you would like help with: None Currently or been in a relationship where the following occur: No concerns reported THRIVE Score: 1 AUDIT C Alcohol Use Questionnaire (AUDIT-C) 1. How often do you have a drink containing alcohol?: Monthly or less 2. How many drinks containing alcohol do you have on a typical day when you are drinking?: 3 or 4 3. How often do you have six or more drinks on one occasion?: Less than monthly Total Score: 3 TAMIKA-7 AMB Questionnaire TAMIKA-7 Date TAMIKA - 7 assessed: 12/28/24 Feeling nervous, anxious, or on edge: 0 = Not at all Not being able to stop or control worryin = Not at all Worrying too much about different things: 0 = Not at all Trouble relaxin = Not at all Being so restless that it is hard to sit still: 0 = Not at all Becoming easily annoyed or irritable: 1 = Several days Feeling afraid as if something awful might happen: 0 = Not at all Total TAMIKA-7 score (0-4 normal; 5-9 mild; 10-14 moderate; 15-21 severe): 1 Source: Developed by Drs. Bruce Alfonso, Andria Michael, Krishna Rivera and colleagues, with an educational meño from [employer]. TAMIKA-7 Assessment Billing TAMIKA-7 Assessment Tool: TAMIKA-7 Assessment 66912 Review of Systems Const Denies body aches, Denies chills, Denies excessive sweating, Denies fatigue, Denies fever(s) and Denies headache(s) Eyes Denies blurry vision ENT Denies dysphagia, Denies vertigo, Denies dizziness, Denies headache(s), Denies hearing loss and Denies tinnitus Card Denies chest pain, Denies chest pain with activity, Denies syncope, Denies irregular heart rhythm and Denies dyspnea Resp Denies chest congestion, Denies cough, Denies hemoptysis, Denies dyspnea and Denies wheezing GI Denies abdominal pain, Denies melena, Denies hematochezia, Denies coffee ground emesis, Denies dysphagia, Denies diarrhea, Denies nausea and Denies vomiting Denies difficulty urinating, Denies dysuria, Denies urinary frequency, Denies urinary hesitancy and Denies urinary urgency Musc Denies arthralgias, Denies limited range of motion, Denies muscle cramps and Denies muscle weakness Skin/Breast Denies rash and Denies skin ulcer Neuro Denies Abnormal speech present, Denies confusion, Denies vertigo, Denies dizziness, Denies syncope, Denies headache(s), Denies memory loss and Denies seizure-like activity Psych Denies anxiety, Denies confusion, Denies depression, Denies memory loss, Denies panic attacks and Denies paranoia Endo Denies excessive sweating, Denies fatigue, Denies flushing, Denies polydipsia and Denies polyuria Aller/Immun Denies wheezing Physical exam (Primary Care) Vital Signs: Last Vital Signs Pulse 72 12/28/24 15:59 BP 124/80 12/28/24 15:59 Pulse Ox 97 12/28/24 15:59 Oxygen Delivery Method Room Air 12/28/24 15:59 BMI result Body Mass Index 35.3 BMI Assessment/Plan discussion: High BMI High, discussed plan: lifestyle, weight reduction, dietary and physical activity Tobacco/Smoking Status: Tobacco use Status Tobacco use date assessed 12/28/24 12/28/24 16:03 Patient Tobacco Use Status Never used Tobacco 12/28/24 16:05 e-Cigarette/Vaping Use Never Used 12/28/24 16:05 PHQ-9: PHQ-9 Score PHQ-9: Total score 2 12/28/24 16:03 Thrive Assessment: Date of Thrive Assessment Date Thrive assessed 12/28/24 12/28/24 16:03 Currently or been in a relationship where the following occur: No concerns reported Const Other: Obese General: cooperative, comfortable, no acute distress, alert and awake; No confusion Orientation/consciousness: oriented to person, oriented to place, patient oriented x3 and No confusion HENMT Head: Yes normocephalic Ears: external ears normal and TM's normal bilaterally Face and sinus: No sinus tenderness Mouth: Normal oral and palatal mucosa present and tongue normal Teeth and gingiva: dentition normal and gingiva normal Throat: Yes posterior oropharynx normal, Yes tonsils normal and Yes uvula midline Eyes Conjunctivae: conjunctivae normal Sclerae: sclerae normal Pupils: Equal, round and reactive pupils present EOM: EOMs intact bilaterally Direct Ophthalmoscopy: No no photophobia Neck Neck: Yes no lymphadenopathy, No tender and Yes no JVD Thyroid: Thyroid normal Carotids: no bruits Chest Chest palpation & inspection: no tenderness Resp Effort & Inspection: normal respiratory effort, no audible wheezes, not labored and no stridor Auscultation: no crackles, no rales, no rhonchi and no wheezes Cardio Jugular venous distension: no JVD Rate: regular rate, not bradycardic and not tachycardic Rhythm: regular rhythm Bruits: no carotid bruits Peripheral pulses: Peripheral pulses 2+ throughout GI Inspection: Yes normal to inspection, No abdominal wall ecchymosis and No visible herniation Palpation (GI): Soft to palpation, nontender, no guarding, not rigid and No hepatosplenomegaly present Auscultation: normoactive bowel sounds General: Yes no CVA tenderness Back/Spine/Pelvis Back: no CVA tenderness and No back tenderness Cervical Spine: cervical ROM normal Thoracic/Lumbar Spine: thoracic and lumbar spine normal to inspection, straight leg raise negative bilaterally, No thoraco-lumbar ROM limited and No lumbar spinal tenderness Skin Lesions: no lesions Rashes: no rashes Wounds: no wounds Neuro General: oriented to person, oriented to place, patient oriented x3, CN's II-XI intact bilaterally and No confusion Cranial nerves: Yes Equal, round and reactive pupils present and Yes Normal accommodation reflex present Cognition (Neuro): normal cognition Speech: No Abnormal speech present Gait exam (Neuro): Normal gait present Motor exam (neuro): 5/5 motor strength present throughout Extrem Right upper extremity: full ROM; no cyanosis Left upper extremity: full ROM; no cyanosis Right lower extremity: no edema Left lower extremity: no edema Psych Appearance: grossly normal Mental Status: mental status grossly normal Affect: normal affect Attitude: cooperative Thought process: Normal thought process present Office Procedures Cerumen Removal From which ear canal was the cerumen removed: left Removal: irrigation and otoscope w/curette Notes: patient tolerated procedure well [id number] Irrigation/Lavage Coding Level of Care Code Est Pt Prev Care 18-39y([id number]) Diagnoses Annual physical exam Z00.00 Mixed hyperlipidemia E78.2 Hyperlipidemia type: mixed hyperlipidemia Class 2 obesity E66.812 Left ear impacted cerumen H61.22 CPT Codes Office Procedure - CPT: 10136-Tjs Irrigation/Lavage ([id number]) Additional Codes TAMIKA-7 Assessment Billing - TAMIKA-7 Assessment Tool: TAMIKA-7 Assessment 62927 ([id number]) Assessment & Plan Assessment & Plan (1) Annual physical exam: Code(s): Z00.00 - Encounter for general adult medical examination without abnormal findings Category: Medical Plan: As per HPI (2) HLD (hyperlipidemia): Code(s): E78.5 - Hyperlipidemia, unspecified Category: Medical Qualifiers: Hyperlipidemia type: mixed hyperlipidemia Qualified Code(s): E78.2 - Mixed hyperlipidemia Plan: Patient most recent fasting lipid panel done several years ago though showed very elevated total cholesterol and LDL. He has been trying to intermittently make changes in his diet does not been able to lose much weight over last few years. He promises to get fasting labs done as soon as possible. He is somewhat opposed to cholesterol medication at this time and will like to continue working on lifestyle and dietary changes. (3) Class 2 obesity: Code(s): E66.812 - Obesity, class 2 Category: Medical Plan: Patient does understand his BMI is over 35 and will work on being more physically active and adapting to better eating habits to reduce his weight (4) Left ear impacted cerumen: Code(s): H61.22 - Impacted cerumen, left ear Category: Medical Plan: Large amount of cerumen disimpacted from left ear. Patient reported his hearing is much improved. Orders: Orders Lipid Panel 12/28/24 E78.2 - Mixed hyperlipidemia Complete Blood Count no Diff 12/28/24 E78.2 - Mixed hyperlipidemia Comprehensive [place]. Panel Fast 12/28/24 E78.2 - Mixed hyperlipidemia
[2024-12-28 15:59] VITALS: BP 124/80; PULSE 72; O2SAT 97; BMI 35.3
--- OUTSIDE RECORDS SUMMARY | 2024-12-28 19:16 | XMS_ITS | Encounter Summary ---
Author Organization [facility] Address [address] [place] [id number] Phone Care Team Providers Care Trailer Mechanic Name Role Phone Eldon Barbosa MD Primary Care Provider [phone] Encounter Details Date Type Department Care Team (Late st Contact Info) Description 06/03/2017 Conversion Encounter [facility] [place] [address] [place] [address] Social History Tobacco Use Types Packs/Day Years Used Date Smoking Tobacco: Never Assessed Sex and Gender Information Value Date Recorded Sex Assigned at Not on file Legal Sex Male 4:52 PM EDT Gender Identity Not on file Sexual Orientation Not on file documented as of this encounter Plan of Treatment Not on file documented as of this encounter Visit Diagnoses Not on filedocumented in this encounter Care Teams Trailer Mechanic Relationship Specialty Start Date End Date Eldon Barbosa MD [address] [place] [address] PCP - General 05/28/17 04/08/23 documented as of this encounter
--- OUTSIDE RECORDS SUMMARY | 2024-12-28 19:16 | XMS_ITS ---
Author Name [facility] Organization Unknown History of Medication Use Medication Directions Dispensed Refills Start Date End Date [facility] pantoprazole 40 mg tablet,delayed release TAKE 1 TABLET BY MOUTH ONCE DAILY 1/2 HOUR BEFORE BREAKFAST active Problems Problem Status Onset Date Problem Type Date of Resoluti on Source Closed fracture of thumb metacarpal active 2023-10-06 ProblemAct ENS_AONECT Encounters Encounter Type Encounter Reason Primary Diagnosis Location Date Ambulatory [facility] 02/11/2024 Ambulatory [facility] 01/03/2024 Ambulatory [facility] 01/02/2024 Ambulatory [facility] 11/24/2023 Ambulatory [facility] 10/27/2023 Ambulatory [facility] 10[facility]27/2023 Ambulatory [facility] 10/07/2023 Ambulatory [facility] 10/06/2023 Ambulatory [facility] 10/06/2023 Ambulatory [facility] 10/06/2023 Ambulatory [facility] 10/06/2023 Ambulatory [facility] 10/04/2023
--- OUTSIDE RECORDS SUMMARY | 2024-12-28 19:16 | XMS_ITS | Encounter Summary ---
Author Organization [facility] Address [address] [place] [id number] Phone Care Team Providers Care Consulting Sales Manager Name Role Phone Eldon Barbosa MD Primary Care Provider Encounter Details Date Type Department Care Team (Late st Contact Info) Description 07/18/2014 Documentation [facility] [place] [facility] [address] [place], [place] [phone] Family Medicine, Physician [address] [place] [address] Social History Tobacco Use Types Packs/Day Years [...] on filedocumented in this encounter Care Teams Consulting Sales Manager Relationship Specialty Start Date End Date Eldon Barbosa MD [address] [place] [address] [place] [address] PCP - General 05/28/17 04/08/23 documented as of this encounter
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
--- OUTSIDE RECORDS SUMMARY | 2024-12-28 19:16 | XMS_ITS | Data Portability ---
Author Organization [facility] [employer] [address] Address [address] [place] [address] Care Team Providers Care Transit Planner Name Role Phone ERICK DAHL Primary Care Provider Assessment No assessment recorded. Plan of Treatment Reminders Order Date Submit Date Provider Last Modified By Organization Details Last Modified Time Details Appointments None record ed. Lab None record ed. Referral None record ed. Procedures None record ed. Surgeries None record ed. Imaging None record ed. Medication Orders None record ed. Patient TargetsNo targets recorded. Patient Instructions Encounter Date Encounter Id Patient Instructions Last Modified By Organization Details Last Modified Time 06/01/2023 [id number] earwax blockage: care instructions [email or web address] Not available 06/01/2023 16:49:40 Reason for Referral None Reported. Problems Name Problem SNOMED Code Status Onset Date Resolution Date Notes Provider Name and Address Organization Details Recorded Time Asthma [id number] Completed 06/01/2023 Removal Reason: as a kid ADILSON LUDMILA gong[place] - [facility] 15:50:34 Problem Notes None recorded. Procedures Surgical History Date Name Laterality Status Provider Name and Address Organization Details Recorded Time Cerumen Removal by Irrigation completed Nadine Louise MD [address] [place] [address] [place], [address], [place] - [facility] 06/01/2023 16:50:48 Imaging Results None recorded. Procedure Notes None recorded. Medical Equipment None Reported. Allergies No known drug allergies Medications Not known to be on any medication Vitals Date Recorded Body height Body mass index (BMI) Body weight Pain severity - 0-10 verbal numeric rating [Score] - Reported Respiratory rate Oxygen saturation Oxygen saturation in Arterial blood by Pulse oximetry Heart rate Body temperature Systolic blood pressure Diastolic blood pressure Provider Name and Address Organization Details Last Updated DateTime 175.26 cm 36.2 kg/m2 662580. 13 g 2 18 /min 97 % 97 % 77 /min 97.8 [degF] 124 mm[Hg] 74 mm[Hg] ADILSON DEMPSEYNIGHAT [place] - [facility] 15:53:12 Social History Question Answer Notes LastModified by Organization Details LastModified Time Tobacco Smoking Status Never Smoker ADILSONRojas gong [place] - [facility] 06/01/2023 15:50:23 What Is Your Level Of Alcohol Consumption? Occasional Information not available 06/01/2023 How Many Times Per Week Do You Consume Alcohol? Less Than 1 Time Per Week Information not available 06/01/2023 Do You Use Any Illicit Or Recreational Drugs? No Information not available 06/01/2023 Have You Recently Traveled Abroad? No Returned From [facility] In January Information not available 06/01/2023 Do You Or Have You Ever Used Any Other Forms Of Tobacco Or Nicotine? No Information not available 06/01/2023 Sex: Unknown Functional Status None recorded. Mental Status None recorded. Family History Relationship Description Onset Age of this Age Resolved Age Notes LastModified by Organization Details LastModified Time Father No current problems or disability Not available 06/01 15:50:17 Mother No current problems or disability Not available 06/01 15:50:17 Medical History No medical history recorded. Immunizations Vaccine Type Date Status Note Provider Nam e and Address Organization Details Recorded Time COVID-19, mRNA, LNP-S, PF, 30 mcg/0.3 mL dose 02/03/2021 completed ADILSON DEMPSEYINTO null, [place] - [facility] 06/01/2023 15:50:04 COVID-19, mRNA, LNP-S, PF, 30 mcg/0.3 mL dose 02/24/2021 completed ADILSON DEPINTO null [place] - [facility] 06/01/2023 15:50:04 COVID-19, mRNA, LNP-S, PF, 30 mcg/0.3 mL dose 10/07/2021 completed ADILSON DEPINTO null, [place] - [facility] 06/01/2023 15:50:04 Tdap 09/11/2019 completed ADILSON DEPINTO null, [place] - [facility] 06/01/2023 15:50:04 Influenza, split virus, quadrivalent, PF 10/23/2020 completed ADILSON DEPINTO null, [place] - [facility] 06/01/2023 15:50:04 Past Encounters Encounter ID Performer Location Encounter Start Date Encounter Closed Date Diagnosis/Indication Diagnosis SNOMED-CT Code Diagnosis ICD10 Code Diagnosis Note [id number] [address] [place] [phone] 08/02/2019 17:27:48 08/02/2019 18:03:38 [id number] [address] [place] [id number] 07/05/2017 11:33:44 07/05/2017 12:15:22 [id number] [address] [place] [id number] 12/19/2017 14:38:26 12/19/2017 15:11:16 [id number] [facility] [address] [place] [phone] 02/19/2022 10:43:36 02/19/2022 14:36:46 [id number] Nadine [place] [address] [place] [address] 06/01/2023 15:03:43 06/01/2023 17:08:59 Impacted cerumen in right ear 0377499000 361517 H61.21 Ear wax completing removed, patient reports improvemen t.You should follow-up with [facility] or your PCP in 2-3 days, or at any time if your condition does not improve or worsens. Any acute change should prompt a visit to the nearest Emergency Department . Health Concerns Section Related Observation LastModified by Organization Detai ls LastModified Time None Recorded Concern Status LastModified by Organization Details LastModified Time None Recorded Advance Directives Directive None Recorded Payers Encounter Date Sequence Insurance Name Policy Number Policy Noel Covered Member ID Noel Member ID Guarantor Name 08/02/2019 1 [facility] [id number] Geoff Nixon [id number] Geoff Nixon 02/19/2022 1 [facility] [id number] Geoff Nixon [id number] Geoff Nixon 06/01/2023 1 [facility] [id number] Geoff Nixon [id number] Geoff Nixon Notes Date Note Type Note Provider Name and Address Organization Details Recorded Time 06/01/2023 text/html Ear problem UCReported bypatient.Locatio n:left Quality:clogged;d ecreased hearing Context:no sick contacts; no recent swimming/water in ear; no recent air travel Modifying Factors:does not hurt to lie on, or pull on ear; does not hurt to chew Patient c/o muffled sensation in right ear. Similar symptoms in the past. No ear pain or drainage. Nadine Louise MD [address] [place] [address] [place], [address], [place] - [facility] 06/01/2023 17:09:03
--- OUTSIDE RECORDS SUMMARY | 2024-12-28 19:17 | XMS_ITS | Clinical Summary ---
Author Organization [facility] Address [address] [place] [address] Phone Care Team Providers Care Fixture Designer Name Role Phone Unavailable Primary Care Provider Unavailabl e Immunizations Immunization Administration Dates Next Due DTP 09/28/1994, 3,1993,06/02 DTaP 5 04/01/1998 H1N1 08/06/2009 Hep B, ped/adol 1993,1993,1993 Hib (PRP-T) 06/29/1994, 3,1993,06/02 Influenza Split 06/17/2011,07/15/2010 Influenza, injectable, trivalent 009,08/02/2008,09/01/2007,10/19,10/13/2005 Influenza, injectable, triva lent, preservative free 07/16/2014 MMR 03/30/1997,06/29/1994 Meningococcal Conj (Menactra) MCV4P 03/30/2008 OPV 04/01/1998, 4,1993,06/02 Td (adult) (MBL), 2 Lf tetan us toxoid, PF, adsorbed 05/02/2004 Tdap 03/30/2008 Family History Relation Name Status Comments Father Alive Father: Elevate d cholesterol Mother Alive Mother: Asthma, Ulcerative colitis Social History Tobacco Use Types Packs/Day Years Used Date Smoking Tobacco: Never Assessed Sex and Gender Information Value Date Recorded Sex Assigned at Not on file Legal Sex Male 4:52 PM EDT Gender Identity Not on file Sexual Orientation Not on file Last Filed Vital Signs Vital Sign Reading Time Taken Comments Blood Pressure 110/60 01/12/2014 12:00 AM EDT Pulse - - Temperature 35.8 ??C (96.4 ??F) 01/12/2014 12:00 AM E DT Respiratory Rate - - Oxygen Saturation - - Inhaled Oxygen Concentration - - Weight 98.4 kg (217 lb) 01/12/2014 12:00 AM EDT Height 172.7 cm (5' 8 ) 01/12/2014 12:00 AM EDT Body Mass Index 32.99 01/12/2014 12:00 AM EDT Plan of Treatment Health Maintenance Due Date Last Done Comments Varicella Vaccines (1 of 2 - 13+ 2-dose series) 2006 Consider Men B Vaccine (1 of 2 - Bexsero 2-dose series) 2009 DTaP,Tdap,and Td Vaccines (7 - Td or Tdap) 03/30/2018 03/30/2008, 05/02/2004, 04/01/1998, Additional history exists Influenza Vaccines (#1) 2024 07/16/20 14, 06/17/2011, 07/15/2010, Additional history exists COVID-19 Vaccine ( season) 2024 Hepatitis B Vaccines Completed 1993, 1993, 1993 HIB Vaccines Completed 06/29/1994, 09/18, 1993, Additional history exists MMR Vaccines Completed 03/30/1997, 06/29/1994 IPV Vaccines Completed 04/01/1998, 09/17, 1993, Additional history exists Meningococcal Vaccine Aged Out 03/30/2008 No zachary nuria eligible based on patient's age to complete this topic HPV Vaccines Aged Out No longer eligi ble based on patient's age to complete this topic Hepatitis A Vaccines Aged Out No long er eligible based on patient's age to complete this topic Men B Vaccine Aged Out No longer elig ible based on patient's age to complete this topic Pneumococcal Vaccine Aged Out No long er eligible based on patient's age to complete this topic
== END 2024-12-28 16:22 | disposition home or self-care (01) ==
LOC: HO.HMCH 15:57
PROVIDERS: PCP Physician Assistant; Visit Provider Physician Assistant
DX: Z00.00 Encounter for general adult medical examination without abnormal findings (principal); E78.2 Mixed hyperlipidemia; E66.812 Obesity, class 2; Z68.35 Body mass index [BMI] 35.0-35.9, adult; H61.22 Impacted cerumen, left ear

== ENCOUNTER → 2024-12-28 15:56 | Outpatient (BNVA) | payer OTHER, SELFPAY | PROVIDERS: PCP Physician Assistant; Visit Provider Physician Assistant | DX: Z00.00 Encounter for general adult medical examination without abnormal findings (principal); E78.2 Mixed hyperlipidemia; E66.812 Obesity, class 2; Z68.35 Body mass index [BMI] 35.0-35.9, adult; H61.22 Impacted cerumen, left ear | CPT/HCPCS: 69210; 96127 ==

== ENCOUNTER 2025-06-09 10:05 | Outpatient (REF) | payer OTHER, SELFPAY ==
--- OUTSIDE RECORDS SUMMARY | 2025-06-09 10:07 | XMS_ITS ---
Author Name [facility] Organization Unknown History of Medication Use Medication Directions Dispensed Refills Start Date End Date Stat pantoprazole 40 mg tablet,delayed release TAKE 1 TABLET BY MOUTH ONCE DAILY 1/2 HOUR BEFORE BREAKFAST active Problems Problem Status Onset Date Problem Type Date of Resoluti on Source Closed fracture of thumb metacarpal active 2023-10-06 ProblemAct ENS_AONECT Encounters Encounter Type Encounter Reason Primary Diagnosis Location Date Ambulatory [facility] [place] 02/11/2024 Ambulatory [facility] [place] 01/03/2024 Ambulatory [facility] [place] 01/02/2024 Ambulatory [facility] [place] 11/24/2023 Ambulatory [facility] [place] 10/27/2023 Ambulatory [facility] [place] 10/27/2023 Ambulatory [facility] [place] 10/07/2023 Ambulatory [facility] [place] 10/06/2023 Ambulatory [facility] [place] 10/06/2023 Ambulatory [facility] [place] 10/06/2023 Ambulatory [facility] [place] 10/06/2023 Ambulatory [facility] [place] 10/04/2023
--- OUTSIDE RECORDS SUMMARY | 2025-06-09 10:07 | XMS_ITS | Encounter Summary ---
Author Organization [facility] Address [address] [place] [address] Phone Care Team Providers Care Powerhouse Electrician Apprentice Name Role Phone Eldon Barbosa MD Primary Care Provider Konrad ramírez Encounter Details Date Type Department Care Team (Late st Contact Info) Description 07/18/2014 Documentation [facility] Family Medicine [address] [place] [address] Family Medicine, Physician [address] [place] [address] Social History Tobacco Use Types Packs/Day Years [...] on filedocumented in this encounter Care Teams Powerhouse Electrician Apprentice Relationship Specialty Start Date End Date Eldon Barbosa MD PCP - General 05/28/17 04/08/23 documented as of this encounter
[2025-06-09 13:51] LABS: Hematocrit 42.2 % (42.0-52.0); Hemoglobin 15.2 g/dl (14.0-18.0); Mean Corpuscular HGB Conc 36.0 g/dl (31.0-36.0); Mean Corpuscular Hemoglobin 30.5 pg (27.0-33.0); Mean Corpuscular Volume 84.6 fL (80.0-98.0); NRBC Abs Auto 0.000 X10*3/uL (0.0-0.012); NRBC Pct Auto 0.0 /100WBC (0.0-0.2); Platelet Count 245 X10*3/uL (160-400); Red Blood Count 4.99 X10*6/uL (4.60-5.80); White Blood Count 6.8 X10*3/uL (4.8-10.8)
[2025-06-09 14:10] LABS: Alanine Aminotransferase 34 U/L (0-40); Albumin Level 4.6 g/dL (3.5-5.0); Alkaline Phosphatase 98 U/L (39-117); Anion Gap 14 (12-20); Aspartate Amino Transferase 28 U/L (5-37); Blood Urea Nitrogen 18 mg/dL (9-16); Calcium 9.1 mg/dL (8.4-10.2); Carbon Dioxide 23 mmol/L (22-29); Chloride 106 mmol/L (96-108); Cholesterol 231 mg/dL (<200); Estimated Glomerular Filt Rate > 60; HDL Cholesterol 35 mg/dL (>40); Potassium 4.1 mmol/L (3.3-5.1); Sodium 139 mmol/L (135-145); Total Protein 7.4 g/dL (6.5-8.0); Triglycerides 83 mg/dL (<150)
== END 2025-06-09 10:06 | disposition home or self-care (01) ==
LOC: HO.HMGCLDS 10:05
PROVIDERS: PCP Physician Assistant; Visit Provider Physician Assistant
DX: E78.2 Mixed hyperlipidemia (principal)
CPT/HCPCS: 36415; 80053; 80061; 85027

== ENCOUNTER 2025-07-03 15:42 | Outpatient (AMB) | payer OTHER, SELFPAY ==
--- NOTE | 2025-07-03 15:46 | MHC.PC.OV ---
Vital Signs 07/03/25 15:47 Height 5 ft 9 in Weight 231 lb 4 oz BMI 34.1 BP 130/78 Blood Pressure Location Lt brachial Position Sitting Pulse 61 Pulse Source Pulse Oximeter Temp 97.3 F Temp Source Temporal Artery Scan Pulse Oximetry (%) 98 Oxygen Delivery Method Room Air Intake Visit Reasons: f/u HLD Intake Note: Patient is here to follow up on HLD. Lard Tub Washer Required: No Professional Tutor: Not Required per policy Accompanied by: Self / Same As Patient Allergies oyster extract Allergy (Mild, Verified 07/03/25 16:10) Abdominal Pain Medication List - Last Reconciled 07/03/25 by Todd Leary PA-C No Known Home Meds Tobacco use date assessed: 07/03/25 Dental Screening Dental Screen Date: 12/28/24 HPI f/u HLD HPI Details Patient is a 30-year-old male here today for follow-up visit Patient has a past medical history significant for obesity, hyperlipidemia .. Hyperlipidemia: The patient has a history of hyperlipidemia, with previous cholesterol levels recorded at 278 mg/dL in 2021, which has now decreased to 231 mg/dL. The LDL cholesterol has reduced from 202 mg/dL to 180 mg/dL, indicating improvement though still elevated. The patient has lost 8 pounds since the last visit, currently weighing 231 pounds, down from 239 pounds in the spring. The patient reports engaging in lifestyle modifications, including reducing sugar intake and participating in physical activities such as pickleball once a week. He aims to further reduce his weight to 200 pounds through increased physical activity and dietary changes. .. Class 1 obesity: Has been able to lose 8 lb since last office visit. ' Patient does understand his BMI is over 30 and will work on being more physically active and adapting to better eating habits to reduce his weight Laboratory Tests 10/27/21 06/09/25 16:44 10:47 Cholesterol 278 231 H LDL Cholesterol, C alc 202 180 H TSH 2.35 PFSH Surgical History No pertinent past surgical history Family History Father Hypertension Mother No problems noted. Maternal Uncle Lung cancer Maternal Grandfather Lung cancer Social History Housing: House Alcohol intake: current Alcohol intake frequency: a few times a month Alcohol type: beer Patient Tobacco Use Status: Never used Tobacco e-Cigarette/Vaping Use: Never Used Second Hand Smoke Exposure: No service: No Current occupational status: employed Current occupation: [email or web address] - Cognitive needs: No Hearing needs: No Vision needs: Yes (glasses) Questionnaire Thrive Questionnaire Date Thrive assessed: 12/28/24 I am a: Patient What is your living situation today?: I have a steady place to live Within the past 12 months, did the food you bought not last and you didn't have the money to get more?: Never true Within the past 12 months, did you worry whether your food would run out before you got money to buy more?: Never true Do you have trouble paying for medicines?: No Do you have trouble getting transportation to medical appointments?: No Do you have trouble paying your heating and electricity bill?: No Do you have trouble taking care of your child, family member or friend?: No Do you have trouble with day-to-day activities such as bathing, preparing meals, shopping, managing finances, etc.?: No Are you currently unemployed and looking for a job?: No Are you interested in more education?: No Please select the resources that you would like help with: None Currently or been in a relationship where the following occur: No concerns reported THRIVE Score: 0 TAMIKA-7 AMB Questionnaire TAMIKA-7 Date TAMIKA - 7 assessed: 12/28/24 Source: Developed by Drs. Bruce Alfonso, Andria Michael, Krishna Rivera and colleagues, with an educational meño from [employer]. Review of Systems Const Denies headache(s) Eyes Denies loss of vision ENT Denies vertigo, Denies dizziness, Denies headache(s) and Denies sore throat Card Denies chest pain, Denies leg edema and Denies lightheadedness Resp Denies cough, Denies hemoptysis and Denies wheezing GI Denies abdominal pain, Denies melena, Denies constipation, Denies diarrhea and Denies vomiting Denies dysuria, Denies urinary frequency and Denies urinary urgency Musc Denies arthralgias, Denies joint swelling, Denies numbness and Denies tingling Neuro Denies Abnormal speech present, Denies behavioral changes, Denies vertigo, Denies dizziness, Denies headache(s), Denies loss of vision, Denies memory loss, Denies numbness and Denies tingling Psych Denies anxiety, Denies behavioral changes, Denies depression, Denies memory loss and Denies panic attacks Angelito/Lymph Denies easy bleeding and Denies easy bruising Aller/Immun Denies wheezing Physical exam (Primary Care) Vital Signs: Last Vital Signs Temp 97.3 F 07/03/25 15:47 Pulse 61 07/03/25 15:47 BP 130/78 07/03/25 15:47 Pulse Ox 98 07/03/25 15:47 Oxygen Delivery Method Room Air 07/03/25 15:47 BMI result Body Mass Index 34.1 BMI Assessment/Plan discussion: High BMI High, discussed plan: lifestyle, weight reduction, dietary and physical activity Tobacco/Smoking Status: Tobacco use Status Tobacco use date assessed 07/03/25 07/03/25 16:07 Patient Tobacco Use Status Never used Tobacco 07/03/25 16:07 e-Cigarette/Vaping Use Never Used 07/03/25 16:07 Thrive Assessment: Date of Thrive Assessment Date Thrive assessed 12/28/24 07/03/25 16:07 Currently or been in a relationship where the following occur: No concerns reported Const General: healthy appearing, no acute distress, alert and awake Nutritional Appearance: well nourished Orientation/consciousness: oriented to person, oriented to place and oriented to time HENMT Ears: TM's normal bilaterally General nose exam: Normal nasal mucous membranes and turbinates present Eyes Conjunctivae: conjunctivae normal Sclerae: sclerae normal Pupils: Equal, round and reactive pupils present Neck Neck: Yes no lymphadenopathy and Yes no JVD Thyroid: Thyroid normal Carotids: no bruits Resp Effort & Inspection: normal respiratory effort and not tachypneic Auscultation: no crackles, no rales, no rhonchi and no wheezes Cardio Rate: regular rate Rhythm: regular rhythm Heart sounds: no murmurs and normal S1 and S2 GI Palpation (GI): Soft to palpation, nontender, no hepatomegaly and no splenomegaly Auscultation: normal bowel sounds Skin General skin exam: no rashes or lesions noted and dry skin Neuro General: oriented to person, oriented to place and oriented to time Cranial nerves: Yes Equal, round and reactive pupils present Speech: No Abnormal speech present Gait exam (Neuro): Normal gait present Motor exam (neuro): no tremor noted Extrem Right upper extremity: full ROM Left upper extremity: full ROM Right lower extremity: full ROM; no edema Left lower extremity: full ROM; no edema Psych Mental Status: mental status grossly normal Speech and movement: Normal speech and movement present Affect: normal affect Attitude: cooperative Thought process: Normal thought process present Coding Level of Care Code Est Pt Level 4 (70047) Diagnoses Mixed hyperlipidemia E78.2 Hyperlipidemia type: mixed hyperlipidemia Class 1 obesity E66.811 Assessment & Plan Assessment & Plan (1) HLD (hyperlipidemia): Code(s): E78.5 - Hyperlipidemia, unspecified Category: Medical Qualifiers: Hyperlipidemia type: mixed hyperlipidemia Qualified Code(s): E78.2 - Mixed hyperlipidemia Plan: The patient will continue lifestyle modifications, including dietary changes and increased physical activity, to manage hyperlipidemia. Regular monitoring of cholesterol levels will be conducted every six months to assess progress. (2) Class 1 obesity: Code(s): E66.811 - Obesity, class 1 Category: Medical Plan: Patient does understand his BMI is over 30 will work on being more physically active to better eating habits to reduce his weight Orders: Orders Lipid Panel Today E78.2 - Mixed hyperlipidemia Complete Blood Count no Diff Today E78.2 - Mixed hyperlipidemia Comprehensive [place]. Panel Fast Today E78.2 - Mixed hyperlipidemia
[2025-07-03 15:47] VITALS: BP 130/78; PULSE 61; TEMP 36.3; O2SAT 98; BMI 34.1
--- OUTSIDE RECORDS SUMMARY | 2025-07-03 18:53 | XMS_ITS | Encounter Summary ---
Author Organization [facility] Address [address] [place] [id number] Phone Care Team Providers Care Clinical Engineering Manager Name Role Phone Eldon Barbosa MD Primary Care Provider Konrad ramírez Encounter Details Date Type Department Care Team (Late st Contact Info) Description 06/03/2017 Conversion Encounter [facility] - [address] [address] Social History Tobacco Use Types Packs/Day Years [...] on filedocumented in this encounter Care Teams Clinical Engineering Manager Relationship Specialty Start Date End Date Eldon Barbosa MD PCP - General 05/28/17 04/08/23 documented as of this encounter
--- OUTSIDE RECORDS SUMMARY | 2025-07-03 18:53 | XMS_ITS | Encounter Summary ---
Author Organization [facility] Address [address] [place] [id number] Phone Care Team Providers Care Laborer Plumbing Name Role Phone Eldon Barbosa MD Primary Care Provider Konrad ramírez Encounter Details Date Type Department Care Team (Late st Contact Info) Description 07/18/2014 Documentation [facility] [place] [facility] [address] [place] [address] Family Medicine, Physician [address] [place] [address] Social History Tobacco Use Types Packs/Day Years [...] on filedocumented in this encounter Care Teams Laborer Plumbing Relationship Specialty Start Date End Date Eldon Barbosa MD PCP - General 05/28/17 04/08/23 documented as of this encounter
--- OUTSIDE RECORDS SUMMARY | 2025-07-03 18:53 | XMS_ITS | Clinical Summary ---
Author Organization [facility] Address [address] [place] [id number] Phone Care Team Providers Care Supervisor Production Name Role Phone Unavailable Primary Care Provider [...] AM EDT Pulse - - Temperature 35.8 C (96.4 F) 01/12/2014 12:00 AM EDT Respiratory Rate - - Oxygen Saturation - - Inhaled Oxygen Concentration - - Weight 98.4 kg (217 lb) 01/12/2014 12:00 AM EDT Height 172.7 cm (5' 8 ) 01/12/2014 12:00 AM EDT Body Mass Index 32.99 01/12/2014 12:00 AM EDT Plan of Treatment Health Maintenance Due Date Last Done Comments Varicella Vaccines (1 of 2 - 13+ 2-dose series) 2006 DTaP,Tdap,and Td Vaccines (7 - Td or Tdap) 03/30/2018 03/30/2008, 05/02/2004, 04/01/1998, Additional history exists HPV Vaccines (1 - 3-dose SCDM series) 2020 Influenza Vaccines (#1) 2025 07/16/20 14, 06/17/2011, 07/15/2010, Additional history exists COVID-19 Vaccine ( season) 2025 Hepatitis B Vaccines Completed 1993, 1993, 1993 [...]
== END 2025-07-03 16:35 | disposition home or self-care (01) ==
LOC: HO.HMCH 15:43
PROVIDERS: PCP Physician Assistant; Visit Provider Physician Assistant
DX: E78.2 Mixed hyperlipidemia (principal); E66.811 Obesity, class 1; Z68.34 Body mass index [BMI] 34.0-34.9, adult